=== PATIENT | male | born 1945 | race American Indian/Alaskan Native ===

== ENCOUNTER 2017-08-16 02:40 | Emergency (ER) | payer MEDICARE ==
--- NOTE | 2017-08-16 05:21 | Emergency Department Report ---
ED Lower Extremity HPI - General Chief Complaint: Extremity Problem,Nontraumatic Stated Complaint: LEG CRAMPS Time Seen by Provider: 08/16/17 03:37 Source: patient Mode of arrival: Stretcher Limitations: No Limitations - History of Present Illness Initial Comments: 72-year-old male with past medical history of hypertension, presents to ER with complaints of bilateral leg cramps. Patient has to stand all day and immediately developed bilateral leg cramps. Patient denies nausea vomiting or diarrhea. Patient revealed that he had eaten much all day. We'll cramps in her lower legs have now resolved. No shortness of breath no chest pain. -: Gradual (yesterday) Injury: Leg: Right, Left (bilateral leg cramps) Place: street/outdoors Severity: moderate Improves With: nothing Worsens With: nothing Context: other (patient has been standing all day and hadn't eaten anything and he later developed bilateral leg cramps) Associated Symptoms: able to partially bear weight. denies: snap/pop sensation , swelling, numbness, tingling, unable to bear weight - Related Data Previous Rx's Medication Instructions Recorded Last Taken Type Diclofenac Potassium [Cambia] 50 mg PO TID PRN #30 powd.pack 08/16/17 Unknown Rx Methocarbamol [Robaxin TAB] 1,500 mg PO Q8H #30 tablet 08/16/17 Unknown Rx Allergies Allergy/AdvReac Type Severity Reaction Status Date / Time No Known Allergies Allergy Unverified 08/16/17 05:09 ED Review of Systems ROS: Stated complaint: LEG CRAMPS Other details as noted in HPI Comment: All other systems reviewed and negative Constitutional: malaise, weakness. denies: diaphoresis, fever Eyes: denies: eye pain, eye discharge, vision change ENT: denies: throat pain, dental pain, hearing loss, epistaxis Respiratory: denies: cough, orthopnea, shortness of breath, SOB with exertion Cardiovascular: denies: chest pain, palpitations, dyspnea on exertion, edema, syncope, paroxysmal nocturnal dyspnea Endocrine: denies: no symptoms reported, see HPI, excessive sweating, flushing, increased hunger, increased thirst, unexplained weight gain Gastrointestinal: denies: nausea, vomiting, diarrhea, constipation, hematemesis Genitourinary: denies: urgency, dysuria, frequency, hematuria Musculoskeletal: myalgia (bilateral leg cramps) Skin: denies: lesions, change in color, change in hair/nails Neurological: weakness. denies: headache, numbness, paresthesias ED Past Medical Hx - Past Medical History Previous Medical History?: Yes Hx Hypertension: Yes Additional medical history: prostate Cancer - Surgical History Past Surgical History?: Yes Additional Surgical History: prostate remove - Social History Smoking Status: Never Smoker Substance Use Type: Alcohol - Medications Home Medications: Home Medications Medication Instructions Recorded Confirmed Last Taken Type Diclofenac Potassium [Cambia] 50 mg PO TID PRN #30 powd.pack 08/16/17 Unknown Rx Methocarbamol [Robaxin TAB] 1,500 mg PO Q8H #30 tablet 08/16/17 Unknown Rx ED Physical Exam - General Limitations: No Limitations General appearance: alert, in no apparent distress - Head Head exam: Present: atraumatic, normocephalic, normal inspection - Eye Eye exam: Present: normal appearance, PERRL, EOMI. Absent: scleral icterus, conjunctival injection, nystagmus Pupils: Present: normal accommodation - ENT ENT exam: Present: normal exam, normal orophraynx, mucous membranes moist - Neck Neck exam: Present: normal inspection, full ROM. Absent: tenderness, lymphadenopathy - Respiratory Respiratory exam: Present: normal lung sounds bilaterally. Absent: respiratory distress, chest wall tenderness - Cardiovascular Cardiovascular Exam: Present: regular rate, normal rhythm, normal heart sounds. Absent: tachycardia, systolic murmur, diastolic murmur - GI/Abdominal GI/Abdominal exam: Present: soft, normal bowel sounds. Absent: distended, tenderness, guarding, rebound, hyperactive bowel sounds - Rectal Rectal exam: Present: deferred - Expanded Lower Extremity Exam Right Hip exam: Present: full ROM. Absent: tenderness, swelling, laceration, ecchymosis Upper Leg exam: Present: normal inspection, full ROM. Absent: tenderness Knee exam: Present: normal inspection, full ROM. Absent: tenderness Lower Leg exam: Present: normal inspection. Absent: full ROM, tenderness, swelling, laceration, deformity, crepidus Ankle exam: Present: normal inspection, full ROM. Absent: tenderness, swelling , abrasion, laceration, ecchymosis Foot/Toe exam: Present: normal inspection, full ROM. Absent: tenderness, swelling, abrasion, dislocation, erythema, amputation Neuro vascular tendon exam: Present: no vascular compromise. Absent: pulse deficit, abnormal cap refill, motor deficit, sensory deficit, tendon deficit, extremity cold to touch, pallor, abnormal 2-point discrimination, decreased fine /light touch, foot drop Gait: Positive: not tested/not observed - Back Exam Back exam: Present: normal inspection. Absent: full ROM, tenderness, CVA tenderness (L) - Neurological Exam Neurological exam: Present: alert, oriented X3, CN II-XII intact. Absent: motor sensory deficit ED Course Vital Signs 08/16/17 03:14 Temperature 97.8 F Pulse Rate 85 Respiratory 16 Rate Blood Pressure 132/80 Blood Pressure 132/80 [Left] O2 Sat by Pulse 96 Oximetry - Reevaluation(s) Reevaluation #1: 08/16/17 05:25 Patient feels much better Critical Care Time: No Critical care attestation.: If time is entered above; I have spent that time in minutes in the direct care of this critically ill patient, excluding procedure time. ED Disposition Clinical Impression: Bilateral leg cramps Clinical Impression: (Ruled Out): Leg cramping Disposition: - TO HOME OR SELFCARE Is pt being admited?: No Does the pt Need Aspirin: No Condition: Stable Instructions: Leg Cramps (ED) Additional Instructions: Follow up with your private physician in the next 2-3 days Prescriptions: Diclofenac Potassium [Cambia] 50 mg PO TID PRN #30 powd.pack PRN Reason: Pain, Moderate (4-6) Methocarbamol [Robaxin TAB] 1,500 mg PO Q8H #30 tablet Referrals: PRIMARY CARE, [Primary Care Provider] - 3-5 Days Time of Disposition: 05:30
[2017-08-16 05:36] VITALS: BP 124/84
== END 2017-08-16 06:12 | disposition home or self-care (01) ==
LOC: ED 02:40
DX: R25.2 Cramp and spasm (principal); I10 Essential (primary) hypertension
CPT/HCPCS: 99283